=== PATIENT | male | born 1970 | race African-American/Black ===

== ENCOUNTER 2021-07-30 12:17 | Emergency (ER) | payer OTHER ==
[2021-07-30 14:53] VITALS: BP 145/95; TEMP 97.7
== END 2021-07-30 14:53 | disposition home or self-care (01) ==
LOC: ED 12:17
PROC: 2W3RX1Z Immobilization of Left Lower Leg using Splint (ICD-10-PCS; principal; 2021-07-30)
DX: S92.332A Displaced fracture of third metatarsal bone, left foot, initial encounter for closed fracture (principal); S92.342A Displaced fracture of fourth metatarsal bone, left foot, initial encounter for closed fracture; S92.352A Displaced fracture of fifth metatarsal bone, left foot, initial encounter for closed fracture; W20.8XXA Other cause of strike by thrown, projected or falling object, initial encounter; Y93.H3 Activity, building and construction; Y92.69 Other specified industrial and construction area as the place of occurrence of the external cause
CPT/HCPCS: 99283